=== PATIENT | female | born 1950 | race Caucasian/White ===

== ENCOUNTER 2025-03-21 13:55 | Outpatient (AMB) | payer MEDICARE, SELFPAY ==
--- NOTE | 2025-03-21 14:12 | MHC.PC.OV ---
Vital Signs 03/21/25 14:20 Height 4 ft 10.86 in Weight 172 lb 2 oz BMI 34.9 BP 132/70 Blood Pressure Location Lt brachial Position Sitting Respiration 14 Pulse 76 Pulse Source Pulse Oximeter Temp 98.2 F Temp Source Oral Pulse Oximetry (%) 96 Oxygen Delivery Method Room Air Intake Visit Reasons: EST CARE/HIP ISSUES Intake Note: New patient visit Radio Frequency Technician Required: No Allergies codeine Allergy (Intermediate, Verified 03/21/25 14:18) Hives Sulfa (Sulfonamide Antibiotics) Allergy (Intermediate, Verified 03/21/25 14:18) Hives sulccylcholine Allergy (Severe, Uncoded 03/21/25 14:18) Unknown trimethaphan Allergy (Intermediate, Uncoded 03/21/25 14:18) Hives Tobacco use date assessed: 03/21/25 Fall risk assessment: No Falls in past year Last assessed Fall Risk: 03/21/25 Dental Screening Dental Screen Date: 03/21/25 Did you have a dental visit in the last 12 months?: Yes Did you have a dental problem in the last 6 months where you did not have access to dental care?: No Was dental information given to patient?: Patient has dentist HPI HPI Comments History of Present Illness Details The patient is a 74 year old female with past medical history of prediabetes, htn, hld, hypothyroid, LBBB, elevated lfts, kidney stones, psoriasis presenting [facility]. Last seen by PCP March 2024 Isidro Raman. A1C was increased at that time. CV: On toprol 25mg daily, crestor, furosemide. 132/70. Denies chest pain, shortness of breath. Had previous cardiac work up with [facility]. Hypothyroid-on levothyroxine 100mcg daily Osteoporosis-on prolia through Dr Lacey MSK-Off meloxicam Follows with allergy, Dr Hayes. Low immune function. Mammogram: [facility] Follows with second time worker-Dr Lacey Colon cancer screening-due, last at [address] Lawson [employer] CONSTITUTIONAL: Denies weight loss, fever and chills. HEENT: Denies changes in vision and hearing. RESPIRATORY: Denies SOB and cough. CV: Denies palpitations and CP GI: Denies abdominal pain, nausea, vomiting and diarrhea. : Denies dysuria and urinary frequency. MSK: Denies new myalgia and joint pain. SKIN: Denies rash and pruritus. NEUROLOGICAL: Denies headache PSYCHIATRIC: Denies recent changes in mood. PHYSICAL EXAM: GENERAL: Alert and oriented x 3. NAD EYES: EOMI. Anicteric. HENT: Moist mucous membranes. No scleral icterus. No cervical lymphadenopathy. LUNGS: Clear to auscultation bilaterally. CARDIOVASCULAR: Regular rate and rhythm. No murmur. No JVD. ABDOMEN: Soft, non-tender +bs EXTREMITIES: No edema. Non-tender. SKIN: No rashes or lesions. Warm. NEUROLOGIC: No focal neurological deficits. CN II-XII grossly intact PSYCHIATRIC: Cooperative. Appropriate mood and affect [facility] Surgical History H/O arthroscopy H/O: hysterectomy H/O lithotripsy History of section Family History Mother Breast cancer Father Bladder cancer Social History Housing: House Alcohol intake: current Patient Tobacco Use Status: Never used Tobacco e-Cigarette/Vaping Use: Never Used Second Hand Smoke Exposure: No Substance Use Type: Former Substance User and Marijuana service: No Current occupational status: retired Cognitive needs: No Hearing needs: Yes (Hearing aid right side, Hearing loss in left) Vision needs: Yes (retina tear) Questionnaire PHQ-9 Over the last 2 weeks, how often have you been bothered by any of the following problems? 1. Little interest or pleasure in doing things: not at all 2. Feeling down, depressed, or hopeless: several days 3. Trouble falling or staying asleep, or sleeping too much: several days 4. Feeling tired or having little energy: several days 5. Poor appetite or overeating: not at all 6. Feeling bad about yourself - or that you are a failure or have let yourself or your family down: not at all 7. Trouble concentrating on things, such as reading the newspaper or watching television: not at all 8. Moving or speaking so slowly that other people could have noticed. Or the opposite - being so fidgety or restless that you have been moving around a lot more than usual: several days 9. Thoughts that you would be better off or of hurting yourself in some way: not at all Total score: 4 Depression Screening Interpretation: Negative Depression Screening Done: Yes 23016 - PHQ-9 Billing: Yes Source: Developed by Drs. Nirav Obrien, Nisha Arias, Juanjo Coon and colleagues, with an educational blade from [employer]. Thrive Questionnaire Date Thrive assessed: 03/21/25 I am a: Patient What is your living situation today?: I have a steady place to live Within the past 12 months, did the food you bought not last and you didn't have the money to get more?: Never true Within the past 12 months, did you worry whether your food would run out before you got money to buy more?: Never true Do you have trouble paying for medicines?: No Do you have trouble getting transportation to medical appointments?: No Do you have trouble paying your heating and electricity bill?: No Do you have trouble taking care of your child, family member or friend?: No Do you have trouble with day-to-day activities such as bathing, preparing meals, shopping, managing finances, etc.?: No Are you currently unemployed and looking for a job?: No Are you interested in more education?: No Please select the resources that you would like help with: None Currently or been in a relationship where the following occur: No concerns reported THRIVE Score: 0 AUDIT C Alcohol Use Questionnaire (AUDIT-C) 1. How often do you have a drink containing alcohol?: Monthly or less 2. How many drinks containing alcohol do you have on a typical day when you are drinking?: 1 or 2 3. How often do you have six or more drinks on one occasion?: Never Total Score: 1 PAOLO-7 AMB Questionnaire PAOLO-7 Date PAOLO - 7 assessed: 03/21/25 Feeling nervous, anxious, or on edge: 1 = Several days Not being able to stop or control worryin = Several days Worrying too much about different things: 1 = Several days Trouble relaxin = Not at all Being so restless that it is hard to sit still: 0 = Not at all Becoming easily annoyed or irritable: 0 = Not at all Feeling afraid as if something awful might happen: 1 = Several days Total PAOLO-7 score (0-4 normal; 5-9 mild; 10-14 moderate; 15-21 severe): 4 Source: Developed by Drs. Nirav Obrien, Nisha Arias, Juanjo Coon and colleagues, with an educational blade from [employer]. PAOLO-7 Assessment Billing PAOLO-7 Assessment Tool: PAOLO-7 Assessment 04884 Physical exam (Primary Care) Vital Signs: Last Vital Signs Temp 98.2 F 03/21/25 14:20 Pulse 76 03/21/25 14:20 Resp 14 03/21/25 14:20 BP 132/70 03/21/25 14:20 Pulse Ox 96 03/21/25 14:20 Oxygen Delivery Method Room Air 03/21/25 14:20 BMI result Body Mass Index 34.9 Tobacco/Smoking Status: Tobacco use Status Tobacco use date assessed 03/21/25 03/21/25 14:22 Patient Tobacco Use Status Never used Tobacco 03/21/25 14:36 e-Cigarette/Vaping Use Never Used 03/21/25 14:36 PHQ-9: PHQ-9 Score PHQ-9: Total score 4 03/21/25 14:30 Depression Screening Interpretation: Negative Thrive Assessment: Date of Thrive Assessment Date Thrive assessed 03/21/25 03/21/25 14:29 Currently or been in a relationship where the following occur: No concerns reported Coding Level of Care Code New Pt Level 4 (07656) Complex EM visit Add On G2211 Diagnoses Chronic left-sided low back pain with left-sided sciatica M54.42; G89.29 Chronicity: chronic Back pain laterality: left Sciatica presence: with sciatica Sciatica laterality: sciatica of left side Left hip pain M25.552 Hypothyroidism, unspecified type E03.9 Hypothyroidism type: unspecified Hyperlipidemia, unspecified hyperlipidemia type E78.5 Hyperlipidemia type: unspecified Primary hypertension I10 Hypertension type: primary hypertension Prediabetes R73.03 Additional Codes PAOLO-7 Assessment Billing - PAOLO-7 Assessment Tool: PAOLO-7 Assessment 49453 ([id number]) PHQ-9 - 56815 - PHQ-9 Billing: Yes ([id number]) Assessment & Plan Assessment & Plan (1) Low back pain: Code(s): M54.50 - Low back pain, unspecified Category: Medical Qualifiers: Chronicity: chronic Back pain laterality: left Sciatica presence: with sciatica Sciatica laterality: sciatica of left side Qualified Code(s): M54.42 - Lumbago with sciatica, left side; G89.29 - Other chronic pain (2) Left hip pain: Code(s): M25.552 - Pain in left hip Category: Medical (3) Hypothyroid: Code(s): E03.9 - Hypothyroidism, unspecified Category: Medical Qualifiers: Hypothyroidism type: unspecified Qualified Code(s): E03.9 - Hypothyroidism, unspecified (4) Hyperlipidemia: Code(s): E78.5 - Hyperlipidemia, unspecified Category: Medical Qualifiers: Hyperlipidemia type: unspecified Qualified Code(s): E78.5 - Hyperlipidemia, unspecified (5) Hypertension: Code(s): I10 - Essential (primary) hypertension Category: Medical Qualifiers: Hypertension type: primary hypertension Qualified Code(s): I10 - Essential (primary) hypertension (6) Prediabetes: Code(s): R73.03 - Prediabetes Category: Medical Plan 74 y/o to establish care past medical surgical social reviewed Medicaitons reconciled Labs ordered Left lateral back/left hip pain. Xrays ordered Orders: Orders Complete Blood Count Auto Diff 03/21/25 E03.9 - Hypothyroidism, unspecified, E78.5 - Hyperlipidemia, unspecified, I10 - Essential (primary) hypertension, R73.03 - Prediabetes, Z13.0 - Encounter for screening for diseases of the blood and blood-forming organs and certain disorders involving the immune mechanism TSH reflex Free T4 03/21/25 E03.9 - Hypothyroidism, unspecified, E78.5 - Hyperlipidemia, unspecified, I10 - Essential (primary) hypertension, R73.03 - Prediabetes, Z13.0 - Encounter for screening for diseases of the blood and blood-forming organs and certain disorders involving the immune mechanism Hemoglobin A1c 03/21/25 E03.9 - Hypothyroidism, unspecified, E78.5 - Hyperlipidemia, unspecified, I10 - Essential (primary) hypertension, R73.03 - Prediabetes, Z13.0 - Encounter for screening for diseases of the blood and blood-forming organs and certain disorders involving the immune mechanism Comprehensive Met. Panel 03/21/25 E03.9 - Hypothyroidism, unspecified, E78.5 - Hyperlipidemia, unspecified, I10 - Essential (primary) hypertension, R73.03 - Prediabetes, Z13.0 - Encounter for screening for diseases of the blood and blood-forming organs and certain disorders involving the immune mechanism Lipid Panel 03/21/25 E03.9 - Hypothyroidism, unspecified, E78.5 - Hyperlipidemia, unspecified, I10 - Essential (primary) hypertension, R73.03 - Prediabetes, Z13.0 - Encounter for screening for diseases of the blood and blood-forming organs and certain disorders involving the immune mechanism XR lumbar spine 2-3V 03/21/25 M25.552 - Pain in left hip, M54.50 - Low back pain, unspecified, Z98.890 - Other specified postprocedural states XR hip LT min 2V 03/21/25 M25.552 - Pain in left hip, M54.50 - Low back pain, unspecified, Z98.890 - Other specified postprocedural states Referrals Cologuard Test Z12.11 - Encounter for screening for malignant neoplasm of colon, Z12.12 - Encounter for screening for malignant neoplasm of rectum Medications: New levothyroxine 100 mcg PO DAILY 90 tabs 3RF furosemide 20 mg PO DAILY 90 tabs 3RF
[2025-03-21 14:20] VITALS: BP 132/70; PULSE 76; RESP 14; TEMP 36.8; O2SAT 96; BMI 34.9
== END 2025-03-21 14:52 | disposition home or self-care (01) ==
LOC: HO.HMCFM 13:56
PROVIDERS: PCP Internal Medicine; Visit Provider Internal Medicine
DX: M54.42 Lumbago with sciatica, left side (principal); G89.29 Other chronic pain; M25.552 Pain in left hip; E03.9 Hypothyroidism, unspecified; E78.5 Hyperlipidemia, unspecified; I10 Essential (primary) hypertension; R73.03 Prediabetes

== ENCOUNTER → 2025-03-21 13:55 | Outpatient (BNVA) | payer MEDICARE, SELFPAY | PROVIDERS: PCP Internal Medicine; Visit Provider Internal Medicine | DX: M54.42 Lumbago with sciatica, left side (principal); G89.29 Other chronic pain; M25.552 Pain in left hip; E03.9 Hypothyroidism, unspecified; E78.5 Hyperlipidemia, unspecified; I10 Essential (primary) hypertension; R73.03 Prediabetes | CPT/HCPCS: 96127; 99202 ==

== ENCOUNTER 2025-10-12 09:08 | Outpatient (REF) | payer MEDICARE, SELFPAY ==
--- OUTSIDE RECORDS SUMMARY | 2025-10-12 10:02 | XMS_ITS | Clinical Summary ---
Author Organization [facility] Address [address] [place] [address] Phone Care Team Providers Care Dramatic Teacher Name Role Phone Pedro Raman MD Primary Care Provider [phone] Allergies Active Allergy Reactions Criticality Noted Date Comments Codeine 09/01/2023 Other 09/01/2023 Succinylcholine 09/01/2023 Sulfa (Sulfonamide Antibiotics) 08/10 Trimethoprim 09/01/2023 Medications rosuvastatin (CRESTOR) 40 MG tablet TAKE 1 TABLET BY MOUTH DAILY. STOP atorvastatin 3 Active metoprolol succinate (TOPROL-XL) 25 MG 24 hr tablet Take 1 tablet by mouth every morning. 3 Active meloxicam (MOBIC) 7.5 MG tablet TAKE 1 TABLET BY MOUTH DAILY NEEDED FOR PAIN WITH food 3 Active levothyroxine (SYNTHROID, LEVOTHROID) 100 MCG tablet Take 1 tablet by mouth every morning. 3 Active hydroCHLOROthia zide (HYDRODIURIL) 50 MG tablet Take by mouth. 2 Active gabapentin (NEURONTIN) 300 MG capsule Take 300 mg by mouth. 2 Active furosemide (LASIX) 20 MG tablet TAKE 1 TABLET BY MOUTH DAILY. STOP hctz 3 Active atorvastatin (LIPITOR) 80 MG tablet Take by mouth. 2 Active acetaminophen (TYLENOL) 325 mg tablet Take 975 mg by mouth. 2 Active miscellaneous medical supply Misc See Instructions, # 2 each, Refills 1, Tot. Refills 1, Maintenance, surgical, knee length 20-30 mm Hg, 06/10/22 11:05:00 EDT, Supply 2 Active aspirin 81 mg chewable tablet Take 81 mg by mouth daily. Active denosumab (PROLIA SUBQ) Inject under the skin. Active vitamins A,C,E-zinc-shannan er (PRESERVISION AREDS) 4,296 mcg-226 mg-90 mg Cap Take 1 capsule by mouth 2 (two) times a day with meals. Active cholecalciferol (VITAMIN D3) 25 MCG (1,000 unit) tablet Take 1,000 Units by mouth daily. Active Social History Tobacco Use Types Packs/Day Years Used Date Smoking Tobacco: Never Smokeless Tobacco: Never Tobacco Cessation:Counseling Given: Not Answered Education Answer Date Recorded Are you interested in more education? Not on zaida e 09/01/2023 Are you concerned about learning? Not on file 09/01/2023 No 09/01/2023 No 09/01/2023 Digital Access Answer Date Recorded No 09/01/2023 No 09/01/2023 Reliable internet access at home? Not on file 09/01/2023 Device with a working camera? Not on file Comments Unknown Sex and Gender Information Value Date Recorded Sex Assigned at Not on file Legal Sex Female 1:29 PM EDT Gender Identity Not on file Sexual Orientation Not on file Last Filed Vital Signs Vital Sign Reading Time Taken Comments Blood Pressure 167/79 09/01/2023 2:12 PM EDT Pulse 88 09/01/2023 2:12 PM EDT Temperature 36.9 C (98.4 F) 09/01/2023 2:12 PM EDT Respiratory Rate 20 09/01/2023 2:12 PM EDT Oxygen Saturation 97% 09/01/2023 2:12 PM EDT Inhaled Oxygen Concentration - - Weight 79.4 kg (175 lb) 09/01/2023 2:12 PM EDT Height - - Body Mass Index - - Plan of Treatment Health Maintenance Due Date Last Done Comments Adult Td,Tdap Booster 1952 LIPID PANEL 1952 POTASSIUM LEVEL 1952 TSH LEVEL 1952 DEPRESSION SCREENING 1964 HEPATITIS C SCREENING 1970 MAMMOGRAM 1992 COLOGUARD 1997 COLONOSCOPY 1997 COLORECTAL CANCER SCREENING 1997 FIT TEST 1997 FOBT 1997 SIGMOIDOSCOPY 1997 VIRTUAL COLONOSCOPY 1997 PNEUMOCOCCAL VACCINES (50+ years) (1 of 1 - PCV) 2002 OSTEOPOROSIS SCREENING INITI AL (ONE-TIME) 2017 INFLUENZA VACCINE (#1) 2025 2, 08/22/2021 COVID-19 VACCINE (4 - 2024-2 6 season) 2025 09/29/2022, 03/09/2021, 02/16/2021 RSV VACCINE (1 - 1-dose 75+ series) 2027 ZOSTER VACCINES Completed 02/09/2019, 10/27/2018, 11/03/2012 SMOKING STATUS SCREENING (On ce After 26 Yrs) Completed 09/01/2023 HEPATITIS A VACCINES Aged Out No long er eligible based on patient's age to complete this topic HIB VACCINES Aged Out No longer eligi ble based on patient's age to complete this topic MENINGOCOCCAL VACCINES (ACWY) Aged Out No longer eligible based on patient's age to complete this topic MENINGOCOCCAL VACCINES (B) Aged Out N o longer eligible based on patient's age to complete this topic Medical Devices Not on file Insurance MEDICARE PART A & B [facility] MEDEX SUPPLEMENT MEDICARE PART A & B [employer] MEDEX SUPPLEMENT MEDICARE PART A & B [employer] MED[employer] SUPPLEMENT MEDICARE PART A & B [employer] MED[employer] SUPPLEMENT MEDICARE PART A & B [employer] MEDEX SUPPLEMENT MEDICARE PART A & B [facility] MEDEX SUPPLEMENT Care Teams Dramatic Teacher Relationship Specialty Start Date End Date Pedro Raman MD [address] [place] [id number] PCP - General Internal Medicine 09/01/23 Additional Source Comments The information contained in this document represents components of the legal health record. It is not the complete legal health record.[facility]
[2025-10-12 11:16] LABS: MANUAL DIFF FLAG NO
[2025-10-12 11:21] LABS: Hematocrit 37.3 % (37.0-47.0); Hemoglobin 11.9 g/dl (12.0-16.0); Imm Gran Abs Auto 0.05 X10*3/uL (0.00-0.03); Imm Gran Pct Auto 0.9 % (0.0-0.4); Lymphocytes Absolute Auto 1.7 X10*3/uL (1.2-4.9); Mean Corpuscular HGB Conc 31.9 g/dl (31.0-35.0); Mean Corpuscular Hemoglobin 28.0 pg (27.0-33.0); Mean Corpuscular Volume 87.8 fL (80.0-98.0); NRBC Abs Auto 0.000 X10*3/uL (0.0-0.012); NRBC Pct Auto 0.0 /100WBC (0.0-0.2); Platelet Count 343 X10*3/uL (160-400); Red Blood Count 4.25 X10*6/uL (4.20-5.50); White Blood Count 5.8 X10*3/uL (4.8-10.8)
[2025-10-12 12:03] LABS: Alanine Aminotransferase 18 U/L (0-31); Albumin Level 4.6 g/dL (3.5-5.0); Alkaline Phosphatase 91 U/L (39-117); Anion Gap 13 (12-20); Aspartate Amino Transferase 19 U/L (5-31); Blood Urea Nitrogen 22 mg/dL (9-16); Calcium 9.4 mg/dL (8.4-10.2); Carbon Dioxide 24 mmol/L (22-29); Chloride 108 mmol/L (96-108); Cholesterol 152 mg/dL (<200); Estimated Glomerular Filt Rate > 60; HDL Cholesterol 52 mg/dL (>40); Potassium 4.0 mmol/L (3.3-5.1); Sodium 141 mmol/L (135-145); Total Protein 6.7 g/dL (6.5-8.0); Triglycerides 163 mg/dL (<150)
[2025-10-12 12:14] LABS: Hemoglobin A1C 85.1314 umol/L
[2025-10-12 13:55] LABS: Free T4 (Free Thyroxine) 1.16 ng/dL (0.71-1.85)
== END 2025-10-12 09:09 | disposition home or self-care (01) ==
LOC: HO.WFDLDS 09:08
PROVIDERS: Visit Provider Internal Medicine
DX: Z13.0 Encounter for screening for diseases of the blood and blood-forming organs and certain disorders involving the immune mechanism (principal); I10 Essential (primary) hypertension; E78.5 Hyperlipidemia, unspecified; E03.9 Hypothyroidism, unspecified; R73.03 Prediabetes
CPT/HCPCS: 36415; 80053; 80061; 83036; 84439; 84443; 85025

== ENCOUNTER 2025-10-16 14:45 | Outpatient (AMB) | payer MEDICARE, SELFPAY ==
--- NOTE | 2025-10-16 14:56 | AM.OFFVISMDC ---
Intake Vital Signs 10/16/25 14:57 Height 4 ft 10.86 in Weight 177 lb BMI 35.9 BP 122/84 Blood Pressure Location Lt brachial Position Sitting Respiration 14 Pulse 77 Pulse Source Pulse Oximeter Temp 98 F Temp Source Oral Pulse Oximetry (%) 98 Oxygen Delivery Method Room Air Intake Visit Reasons: AWV/CPE Intake Note: Medical wellness visit. Had left hip surgery on 09/15/2025 Discharge Specialist Required: No Allergies codeine Allergy (Intermediate, Verified 03/21/25 14:18) Hives Sulfa (Sulfonamide Antibiotics) Allergy (Intermediate, Verified 03/21/25 14:18) Hives sulccylcholine Allergy (Severe, Uncoded 03/21/25 14:18) Unknown trimethaphan Allergy (Intermediate, Uncoded 03/21/25 14:18) Hives HPI HPI Comments History of Present Illness Details The patient is a 75 year old female with past medical history of prediabetes, htn, hld, hypothyroid, LBBB, elevated lfts, kidney stones, psoriasis presenting for MWV CV: On toprol 25mg daily, crestor, furosemide. 122/84. Denies chest pain, shortness of breath. Had previous cardiac work up with [facility]. Hypothyroid-on levothyroxine 100mcg daily. Last TSH mildly elevated. She is fatigued-will increase to 112mcg daily. Osteoporosis-on prolia through Dr Abhijit CANO-Off meloxicam. Dr Tineo. s/p left total hip arthroplasty Sep. Doing PT Follows with allergy, Dr Hayes. Low immune function. Mammogram: [facility] Follows with desk clerk-Dr Lacey Colon cancer screening-due, last at 62. Cologuard negative Follows with Dr Pathak Got flu shot ROS CONSTITUTIONAL: Denies weight loss, fever and chills. HEENT: Denies changes in vision and hearing. RESPIRATORY: Denies SOB and cough. CV: Denies palpitations and CP GI: Denies abdominal pain, nausea, vomiting and diarrhea. : Denies dysuria and urinary frequency. MSK: Denies new myalgia and joint pain. SKIN: Denies rash and pruritus. NEUROLOGICAL: Denies headache PSYCHIATRIC: Denies recent changes in mood. PHYSICAL EXAM: GENERAL: Alert and oriented x 3. NAD EYES: EOMI. Anicteric. HENT: Moist mucous membranes. No scleral icterus. No cervical lymphadenopathy. LUNGS: Clear to auscultation bilaterally. CARDIOVASCULAR: Regular rate and rhythm. No murmur. No JVD. ABDOMEN: Soft, non-tender +bs EXTREMITIES: No edema. Non-tender. SKIN: No rashes or lesions. Warm. NEUROLOGIC: No focal neurological deficits. CN II-XII grossly intact PSYCHIATRIC: Cooperative. Appropriate mood and affect [facility] Surgical History H/O arthroscopy H/O: hysterectomy H/O lithotripsy History of section Family History Mother Breast cancer Father Bladder cancer Social History Housing: House Alcohol intake: current Patient Tobacco Use Status: Never used Tobacco e-Cigarette/Vaping Use: Never Used Second Hand Smoke Exposure: No Substance Use Type: Former Substance User and Marijuana service: No Current occupational status: retired Cognitive needs: No Hearing needs: Yes (Hearing aid right side, Hearing loss in left) Vision needs: Yes (retina tear) Questionnaire Medicare Wellness Checkup [age] What gender do you identify with?: female During the past 4 weeks, how much have you been bothered by emotional problems such as feeling anxious, depressed, irritable, sad or downhearted, and blue?: slightly During the past 4 weeks, has your physical & emotional health limited your social activities with family, friends, neighbors, or groups?: slightly During the past 4 weeks, how much bodily pain have you generally had?: severe pain During the past 4 weeks, was someone available to help you if you needed & wanted help?: yes, as much as I wanted During the past 4 weeks, what was the hardest physical activity you could do for at least 2 minutes?: very heavy Can you get to places out of walking distance without help? (For eg., can you travel alone on buses, taxis or drive your car?): Yes Can you go shopping for groceries or clothes without someone's help?: No (because of surgery. left hip surgery) Can you prepare your own meals?: No (only because of hip surgery) Can you do your housework without help?: No (because of sugery) Because of any health problems, do you need the help of another person with your personal care needs such as eating, bathing, dressing or getting around the house?: Yes (because of surgery) Can you handle your own money without help?: Yes During the past 4 weeks, how would you rate your health in general?: good During the past 4 weeks how have things been going for you?: very well; could hardly better Are you having difficulties driving your car?: no (needs to be released by surgeon) Do you always fasten your seat belt when you are in a car?: yes, usually During past 4 weeks, have you been bothered by the following: never: Falling or dizzy when standing up, Sexual problems?, Trouble eating well?, Teeth or denture problems? and Problems using the telephone? and always: Tiredness or fatigue? Have you fallen 2 or more times in the past year?: No Are you afraid of falling?: Yes Are you a smoker?: no During the past 4 weeks, how many drinks of wine, beer, or other alcoholic beverages did you have?: no alcohol at all Do you exercise for about 20 minutes 3 or more times a week?: no, I usually do not exercise this much (not since surgery) Have you been given information to help with the following?: yes: Hazards in your house that might hurt you? and yes: Keeping track of your medications? How often do you have trouble taking medicines the way you have been told to take them?: I always take medicine as prescribed How confident are you that you can control & manage most of your health problems?: very confident What is your race?: White Mini Mental State Exam (MMSE) Orientation What is the (year) (season) (date) (day) (month)?: year, season, date, day and month Where are we (state) (county) (town or city) (hospital) (floor)?: state, county, town or city, hospital/clinic and floor Attention & Calculation (CHOOSE ONE) Ask pt to begin with 100 & count backward by 7. Stop after 5 repeats. If pt cannot ask them to spell the word WORLD backward.: 93, 86, 79, 72 and 65 Recall Ask patient to repeat the 3 items from question #3.: object 1, object 2 and object 3 Language Show patient a wristwatch & ask what it is. Repeat for pencil.: watch and pencil Ask the patient to repeat the phrase 'No ifs, ands, or buts' after you.: incorrect Ask the patient to 'take a piece of paper with their right hand' 'fold paper in half' 'place paper on floor': take paper in right hand, fold paper in half and place paper on floor Print the sentence 'CLOSE YOUR EYES' on a piece. If patient actually closes eyes then score.: followed written direction Give patient a blank piece of paper & ask to write a sentence. Score if it contains a noun & verb.: sentence contains subject and verb Ask patient to copy figure of intersecting pentagons exactly. Score if all 10 angles & 2 intersects are included.: all 10 angles present & 2 are intersected Score Score: 26 Activity of Daily Living Bathing - sponge bath, tub bath or shower: receives no assistance (gets in/out by self, if usual bathing means Dressing - getting clothes from closets & drawers, including inner/outer garments & fasteners.: gets clothes & gets completely dressed without help Toileting - going to the 'toilet room' for urine/bowel elimination & cleaning self/arranging clothes: goes to toilet room, cleans self, arranges clothes without help Transfer: moves in & out of bed and chair without help (may use support object) Continence: controls urination/bowel movements completely by self Feeding: feeds self without help Total Score: 0 Information obtained from: patient Using telephone: independent Traveling: independent Shopping: independent Preparing meals: independent Housework: independent Taking medicine: independent Managing money: independent PHQ-9 Over the last 2 weeks, how often have you been bothered by any of the following problems? 1. Little interest or pleasure in doing things: not at all 2. Feeling down, depressed, or hopeless: not at all 3. Trouble falling or staying asleep, or sleeping too much: nearly every day 4. Feeling tired or having little energy: nearly every day 5. Poor appetite or overeating: not at all 6. Feeling bad about yourself - or that you are a failure or have let yourself or your family down: not at all 7. Trouble concentrating on things, such as reading the newspaper or watching television: not at all 8. Moving or speaking so slowly that other people could have noticed. Or the opposite - being so fidgety or restless that you have been moving around a lot more than usual: not at all 9. Thoughts that you would be better off or of hurting yourself in some way: not at all Total score: 6 Depression Screening Interpretation: Positive (post surgery) Depression Screening Done: Yes 76652 - PHQ-9 Billing: Yes Source: Developed by Drs. Nirav Obrien, Nisha Arias, Juanjo Coon and colleagues, with an educational blade from [employer]. Physical Exam Vital Signs: Last Vital Signs Temp 98 F 10/16/25 14:57 Pulse 77 10/16/25 14:57 Resp 14 10/16/25 14:57 BP 122/84 10/16/25 14:57 Pulse Ox 98 10/16/25 14:57 Oxygen Delivery Method Room Air 10/16/25 14:57 BMI result Body Mass Index 35.9 Assessment & Plan Assessment & Plan (1) Medicare annual wellness visit, subsequent: Code(s): Z00.00 - Encounter for general adult medical examination without abnormal findings (2) Hypertension: Code(s): I10 - Essential (primary) hypertension Qualifiers: Hypertension type: primary hypertension Qualified Code(s): I10 - Essential (primary) hypertension (3) Hyperlipidemia: Code(s): E78.5 - Hyperlipidemia, unspecified Qualifiers: Hyperlipidemia type: unspecified Qualified Code(s): E78.5 - Hyperlipidemia, unspecified (4) Left hip pain: Code(s): M25.552 - Pain in left hip Plan 75 year old female presenting for MWV Interval history reviewed Care team reviewed. MW checkup, MMSE, ADLs reviewed Nasal congestion, PND-add flonase Labs ordered Orders: Orders Hemoglobin A1c 6 Months E03.9 - Hypothyroidism, unspecified, E78.5 - Hyperlipidemia, unspecified, I10 - Essential (primary) hypertension, R73.03 - Prediabetes, Z00.00 - Encounter for general adult medical examination without abnormal findings Vitamin D 1,25 dihydroxy 6 Months E03.9 - Hypothyroidism, unspecified, E78.5 - Hyperlipidemia, unspecified, I10 - Essential (primary) hypertension, R73.03 - Prediabetes, Z00.00 - Encounter for general adult medical examination without abnormal findings Complete Blood Count Auto Diff 6 Months E03.9 - Hypothyroidism, unspecified, E78.5 - Hyperlipidemia, unspecified, I10 - Essential (primary) hypertension, R73.03 - Prediabetes, Z00.00 - Encounter for general adult medical examination without abnormal findings Comprehensive Met. Panel 6 Months E03.9 - Hypothyroidism, unspecified, E78.5 - Hyperlipidemia, unspecified, I10 - Essential (primary) hypertension, R73.03 - Prediabetes, Z00.00 - Encounter for general adult medical examination without abnormal findings Lipid Panel 6 Months E03.9 - Hypothyroidism, unspecified, E78.5 - Hyperlipidemia, unspecified, I10 - Essential (primary) hypertension, R73.03 - Prediabetes, Z00.00 - Encounter for general adult medical examination without abnormal findings Medications: New levothyroxine (Unithroid) 112 mcg PO DAILY 90 tabs 3RF fluticasone propionate 50 mcg/actuation administer into each nostril 2 sprays intranasal DAILY 16 grams 3RF Discontinued levothyroxine Discontinued Reason: Doctor's Order 100 mcg PO DAILY 90 tabs 3RF Quality Reporting (2019) Depression/Bipolar (159/160/161/177) PHQ-9: Total score: 6 Coding Level of Care Code Medicare Subsequent (G0439) Diagnoses Medicare annual wellness visit, subsequent Z00.00 Primary hypertension I10 Hypertension type: primary hypertension Hyperlipidemia, unspecified hyperlipidemia type E78.5 Hyperlipidemia type: unspecified Left hip pain M25.552 Additional Codes PHQ-9 - 34709 - PHQ-9 Billing: Yes ([id number])
[2025-10-16 14:57] VITALS: BP 122/84; PULSE 77; RESP 14; TEMP 36.6; O2SAT 98; BMI 35.9
--- OUTSIDE RECORDS SUMMARY | 2025-10-17 00:01 | XMS_ITS | Clinical Summary ---
Author Organization [facility] Address [address] [place] [address] Phone Care Team Providers Care Model Maker Plastic Name Role Phone Pedro Raman MD Primary Care Provider [phone] Allergies Active Allergy Reactions Criticality Noted Date [...] file Insurance MEDICARE PART A & B [place] [employer] SU[employer]LEMENT MEDICARE PART A & B Member Subscriber Plan / Payer ( fective 2017-Present) Name:Wendy Lew Member ID:[id number] Relation to Subscriber:Self Name:Wendy Lew Subscriber ID:[id number] Payer ID:[id number] Group ID:Not on file Type:Medicare Address: [employer] [address] [place] [address] [place] [employer] SU[employer] MEDICARE PART A & B Member Subscriber Plan / Payer ( fective 2017-Present) Name:Wendy Lew Member ID:[id number] Relation to Subscriber:Self Name:Wendy Lew Subscriber ID:[id number] Payer ID:[id number] Group ID:Not on file Type:Medicare Address: [employer] [address] [place] [phone] [place] [employer] MEDICARE PART A & B Member Subscriber Plan / Payer ( fective 2017-Present) Name:Wendy Lew Member ID:[id number] Relation to Subscriber:Self Name:Wendy Lew Subscriber ID:[id number] Payer ID:[id number] Group ID:Not on file Type:Medicare Address: [employer] [address] [place] [address] [employer] [employer] SU[employer] MEDICARE PART A & B Member Subscriber Plan / Payer ( fective 2017-Present) Name:Wendy Lew Member ID:[id number] Relation to Subscriber:Self Name:Wendy Lew Subscriber ID:[id number] Payer ID:[id number] Group ID:Not on file Type:Medicare Address: [employer] [address] [place] [phone] [place] [employer] SU[employer] MEDICARE PART A & B [place] [employer] SU[employer] Care Teams Model Maker Plastic Relationship Specialty Start Date End Date Pedro Raman MD [address] [place] [id number] PCP - General Internal Medicine 09/01/23 Additional Source Comments The information contained in this document represents components of the legal health record. It is not the complete legal health record.[facility]
== END 2025-10-16 15:33 | disposition home or self-care (01) ==
LOC: HO.HMCFM 14:46
PROVIDERS: PCP Internal Medicine; Visit Provider Internal Medicine
DX: Z00.00 Encounter for general adult medical examination without abnormal findings (principal); I10 Essential (primary) hypertension; E78.5 Hyperlipidemia, unspecified; M25.552 Pain in left hip

== ENCOUNTER → 2025-10-16 14:45 | Outpatient (BNVA) | payer MEDICARE, SELFPAY | PROVIDERS: PCP Internal Medicine; Visit Provider Internal Medicine | DX: Z00.00 Encounter for general adult medical examination without abnormal findings (principal); I10 Essential (primary) hypertension; E78.5 Hyperlipidemia, unspecified; M25.552 Pain in left hip; Z13.31 Encounter for screening for depression; E03.9 Hypothyroidism, unspecified; Z79.890 Hormone replacement therapy | CPT/HCPCS: 96127 ==